=== PATIENT | female | born 1955 | race Caucasian/White ===

== ENCOUNTER 2024-11-07 17:04 | Emergency (ER) | payer BC, SELFPAY ==
[2024-11-07 17:11] VITALS: BP 153/77; PULSE 80; RESP 22; TEMP 37.1; O2SAT 97; BMI 32.1
--- NOTE | 2024-11-07 17:19 | CRLHL7_ITS ---
For Patients: As a result of the Century Cures Act, medical imaging exams and procedure reports are released immediately into your electronic medical record. You may view this report before your referring provider. If you have questions, please contact your health care provider. INDICATION: Shortness of breath. TECHNIQUE: Chest 2 view. COMPARISON: None. FINDINGS: Cardiovascular: Heart size and vasculature are normal in caliber and appearance. Lungs and pleural spaces: Lungs are clear without focal consolidation. No sign of pleural effusion. No pneumothorax identified. Bones and soft tissues: No significant findings. IMPRESSION: No acute cardiopulmonary findings. Dictated by Smita Burgos MD @ 11/07/2024 6:39:53 PM (Electronically Signed)
--- NOTE | 2024-11-07 18:03 | ED_ITS ---
HPI - General Adult General Chief complaint: Cough Stated complaint: cough Time Seen by Provider: 11/07/24 17:08 Source: patient Mode of arrival: ambulatory Limitations: no limitations History of Present Illness HPI narrative: 69-year-old female coming in today complaining of a cough going on for about 3 weeks. She states that it 1st started as a productive cough of clear sputum, then she thought she was getting better this week. Three days ago where she believes that she took a turn started getting worse again with more frequent coughing, however, now cough is dry. She denies any fevers or chills. She feels short of breath during coughing fits but does not otherwise, she denies any chest pain. Patient states that she has a little bit of asthma. She states that she has a p.r.n. albuterol inhaler and a p.r.n. fluticasone inhaler. She also has DuoNebs at home. Cough is present throughout the day and night. She complains of decreased appetite. Patient does smoke half pack cigarettes per day. Related Data Home Medications ?Medication ?Instructions ?Recorded ?Confirmed albuterol sulfate 90 mcg/actuation 2 puff inhalation Q4H PRN 11/07/24 11/07/24 aerosol inhaler atorvastatin 20 mg tablet 20 mg PO DAILY 11/07/24 11/07/24 doxepin 10 mg capsule 10 mg PO QPM 11/07/24 11/07/24 fluticasone propionate 110 1 inh inhalation PRN 11/07/24 mcg/actuation HFA aerosol inhaler lisinopril 10 mg tablet 10 mg PO DAILY 11/07/24 11/07/24 secukinumab 150 mg/mL subcutaneous 2 subcut Q4W 11/07/24 pen injector (Cosentyx Pen 300 mg/2 Pens () sertraline 50 mg tablet 50 mg PO DAILY 11/07/24 11/07/24 varenicline 0.5 mg (11)-1 mg (42) ea PO 11/07/24 tablets in a dose pack Previous Rx's ?Medication ?Instructions ?Recorded benzonatate 100 mg capsule 100 mg PO BID-TID PRN cough #10 11/07/24 caps oseltamivir 75 mg capsule (Tamiflu) 75 mg PO BID 5 days #10 caps 11/07/24 prednisone 20 mg tablet 20 mg PO DAILY 5 days #5 tabs 11/07/24 Allergies Allergy/AdvReac Type Severity Reaction Status Date / Time fluconazole Allergy Rash Verified 11/07/24 18:10 Review of Systems Status of ROS: Reports: 10 or more systems reviewed and unremarkable except as noted in History and below [facility] Social History Smoking Status: Current every day smoker What tobacco products do you use: cigarettes Smoking packs per day: 0.5 Smoking cigarettes per day: 10.0 Do you use any of these nicotine containing products: None How often do you have a drink containing alcohol: never AUDIT-C Alcohol total score: 0 Non-prescribed substance use: denies use Exam Narrative: Exam Narrative: Well-nourished well-developed patient in no acute distress. Alert and oriented. Answers questions appropriately. Mood and affect are appropriate. Thoughts are goal oriented and rational. No tangential or magical thinking noted. Patient speaks in full sentences without needing to catch her breath. HEENT: Normocephalic atraumatic. Pupils are equally round reactive to light. Extraocular muscles are intact. Conjunctivae are moist without any icterus noted. Moist mucous membranes. Cardiovascular: Heart is regular rate and rhythm S1 and S2 are present without any murmurs. Lungs: decreased breath sounds bilaterally with mild, diffuse wheezing. Skin: Well perfused without any obvious rashes. Const: Vital Signs, click to edit/add: Vital Signs - 24 hr 11/07/24 17:11 11/07/24 18:25 Temperature 98.8 F Pulse Rate [Pulse Oximeter] 80 76 Respiratory Rate 22 Blood Pressure [Ri ght Upper Arm] 153/77 H Pulse Oximetry 97 98 Oxygen Delivery Me thod Room Air Room Air Course Course ED Course: Patient received DuoNeb and oral prednisone. Symptoms were ameliorated temporarily with cough did return, therefore we did repeat her DuoNeb. Chest x-ray, read by me, does not show any acute pathology. CBC showed mild anemia, no elevated white cell count. Triple swab positive for influenza A. Vital Signs Vital signs: Initial Vital Signs Temperature 98.8 F 11/07/24 17:11 Temperature Source Temporal Artery Scan 11/07/24 17:11 Pulse Rate 80 11/07/24 17:11 Respiratory Rate 22 11/07/24 17:11 Blood Pressure 153/77 H 11/07/24 17:11 Blood Pressure Mean 102 11/07/24 17:11 Blood Pressure Position Sitting 11/07/24 17:11 Pulse Oximetry 97 11/07/24 17:11 Oxygen Delivery Method Room Air 11/07/24 17:11 Vital Signs Temperature 98.8 F 11/07/24 17:11 Pulse Rate 80 11/07/24 17:11 Respiratory Rate 22 11/07/24 17:11 Blood Pressure 153/77 H 11/07/24 17:11 Pulse Oximetry 97 11/07/24 17:11 Oxygen Delivery Method Room Air 11/07/24 17:11 Temperature 98.8 F 11/07/24 17:11 Pulse Rate 76 11/07/24 18:25 Respiratory Rate 22 11/07/24 17:11 Blood Pressure 153/77 H 11/07/24 17:11 Pulse Oximetry 98 11/07/24 18:25 Oxygen Delivery Method Room Air 11/07/24 18:25 Medications Administered Medications: Generic Name Dose Route Start Last Admin Trade Name Freq PRN Reason Stop Dose Admin Albuterol/Ipratropium 1 neb 11/07/24 18:57 11/07/24 19:27 Iprat-Albut 0.5-2.5 Mg/3 Ml Neb 11/07/24 18:58 1 neb ONCE ONE Administration Guaifenesin 100 mg 11/07/24 19:04 11/07/24 19:39 Guaifenesin 100 Mg/Ml Cup PO 11/07/24 19:05 100 mg ONCE ONE Administration Discontinued Medications Generic Name Dose Route Start Last Admin Trade Name Freq PRN Reason Stop Dose Admin Albuterol/Ipratropium 1 neb 11/07/24 18:02 11/07/24 18:13 Iprat-Albut 0.5-2.5 Mg/3 Ml Neb 11/07/24 18:03 1 neb ONCE ONE Administration Prednisone 50 mg 11/07/24 18:02 11/07/24 18:12 Prednisone 10 Mg Tablet PO 11/07/24 18:03 50 mg ONCE ONE Administration Medical Decision Making [facility] Narrative Medical decision making narrative: 69-year-old female with influenza a, bilateral wheezing and history of tobacco use. Question asthma diagnosis. Patient has DuoNebs at home already. Will send her home with 5 days of prednisone, Jorge Samaniego and Tamiflu. Lab Data Lab results reviewed: Yes I reviewed the patient's lab results Labs: Lab Results 11/07/24 11/07/24 Range/Units 18:00 18:15 WBC 5.78 (4.50-11.00) K/uL RBC 3.94 L (4.00-5.20) m/uL Hgb 11.5 L (12.0-16.0) gm/dL Hct 36.1 (33.0-51.0) % MCV 92 (80-100) fL MCH 29 (26-34) pg MCHC 32 (32-36) gm/dL RDW Coeff of Sunni 13.5 (11.5-15.5) % Plt Count 251 (140-440) K/uL Neut % (Auto) 70.8 (42.0-72.0) % Lymph % (Auto) 13.5 L (20-44) % Harmon % (Auto) 13.7 H (0.0-11.0) % Eos % (Auto) 1.6 (0.0-7.0) % Baso % (Auto) 0.2 (0.0-3.0) % Neut # (Auto) 4.10 (1.7-7.0) K/uL Lymph # (Auto) 0.80 L (0.90-2.90) K/uL Harmon # (Auto) 0.80 (0.00-0.90) K/UL Eos # (Auto) 0.09 (0.00-0.50) K/uL Baso # (Auto) 0.01 (0.00-0.30) K/uL Abs Immat Gran (auto) 0.01 (0.00-0.30) K/uL Imm/Tot Granulo (auto) 0.2 % SARS-CoV-2 (PCR) Negative SARS-CoV-2 (Negative) Influenza Type A (PCR) POSITIVE PCR FLU A A (Negative) Influenza Type B (PCR) Negative PCR FLU B (Negative) RSV (PCR) Negative PCR RSV (Negative) Imaging Data Chest x-ray: Attestation: I have reviewed the pertinent imaging results. Radiologist's impression: Chest 2 view. COMPARISON: None. FINDINGS: Cardiovascular: Heart size and vasculature are normal in caliber and appearance. Lungs and pleural spaces: Lungs are clear without focal consolidation. No sign of pleural effusion. No pneumothorax identified. Bones and soft tissues: No significant findings. IMPRESSION: No acute cardiopulmonary findings. Discharge Plan Discharge Clinical Impression: Influenza A Patient Disposition: Home, Self-Care Condition: Stable Instructions: Influenza (ED), Droplet Precautions (ED) Prescriptions: New prednisone 20 mg tablet 20 mg PO DAILY 5 Days Qty: 5 0RF oseltamivir [Tamiflu] 75 mg capsule 75 mg PO BID 5 Days Qty: 10 0RF benzonatate 100 mg capsule 100 mg PO BID-TID PRN (Reason: cough) Qty: 10 0RF No Action albuterol sulfate 90 mcg/actuation HFA aerosol inhaler 2 puff inhalation Q4H PRN atorvastatin 20 mg tablet 20 mg PO DAILY doxepin 10 mg capsule 10 mg PO QPM fluticasone propionate 110 mcg/actuation HFA aerosol inhaler 1 inh inhalation PRN lisinopril 10 mg tablet 10 mg PO DAILY Cosentyx Pen (2 Pens) 150 mg/mL pen injector 2 subcut Q4W sertraline 50 mg tablet 50 mg PO DAILY varenicline 0.5 mg (11)- 1 mg (42) tablets,dose pack PO Follow Up/Referrals: Danisha Nieves PA-C [Primary Care Provider] - Stand Alone Forms: [employer] Info Instructions
[2024-11-07] MEDS: predniSONE 10 MG TABLET 50 MG PO (18:12)
[2024-11-07] MEDS: IPRAT-ALBUT 0.5-2.5 MG/3 ML NEB 1 NEB IH ×2 (18:13→19:27)
[2024-11-07 18:19] LABS: Basophils Absolute Auto 0.01 K/uL (0.00-0.30); Basophils Percent Auto 0.2 % (0.0-3.0); Eosinophils Absolute Auto 0.09 K/uL (0.00-0.50); Eosinophils Percent Auto 1.6 % (0.0-7.0); Hematocrit 36.1 % (33.0-51.0); Hemoglobin* 11.5 gm/dL (12.0-16.0); Immature Granulocytes Abs Auto 0.01 K/uL (0.00-0.30); Immature Granulocytes Pct Auto 0.2 %; Lymphocytes Percent Auto 13.5 % (20-44); Mean Corpuscular HGB Conc 32 gm/dL (32-36); Mean Corpuscular Hemoglobin 29 pg (26-34); Mean Corpuscular Volume 92 fL (80-100); Monocytes Percent Auto 13.7 % (0.0-11.0); Neutrophils Percent Auto 70.8 % (42.0-72.0); Platelet Count* 251 K/uL (140-440); RDW Coefficient of Variation % 13.5 % (11.5-15.5); Red Blood Count 3.94 m/uL (4.00-5.20); White Blood Count* 5.78 K/uL (4.50-11.00)
[2024-11-07 18:20] LABS: Slide Review Reflex No
[2024-11-07 18:25] VITALS: PULSE 76; O2SAT 98
[2024-11-07 18:54] LABS: PCR FLU A POSITIVE PCR FLU A (Negative); PCR FLU B Negative PCR FLU B (Negative); PCR RSV Negative PCR RSV (Negative); SARS PCR* Negative SARS-CoV-2 (Negative)
[2024-11-07] MEDS: guaiFENesin 100 MG/ML CUP PO (19:39)
== END 2024-11-07 19:47 | disposition home or self-care (01) ==
PROVIDERS: Emergency Provider Family Medicine; PCP Physician Assistant Medical
DX: J10.1 Influenza due to other identified influenza virus with other respiratory manifestations (principal)
CPT/HCPCS: 36415; 71046; 85025; 87631; 94640; 99284; A9270; J7512